=== PATIENT | female | born 1975 | race Caucasian/White ===

== ENCOUNTER 2016-06-13 21:12 | Emergency (ER) | payer OTHER ==
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
[~2016-06-13 21:12] MED LIST: MOTION SICKNESS25 M4 PO; NO MEDICATIONS; ZOFRAN ODT4 MG PO
== END 2016-06-13 22:29 | disposition home or self-care (01) ==
LOC: SED 21:12
DX: S13.4XXA Sprain of ligaments of cervical spine, initial encounter (principal); S23.3XXA Sprain of ligaments of thoracic spine, initial encounter; S40.011A Contusion of right shoulder, initial encounter; V43.62XA Car passenger injured in collision with other type car in traffic accident, initial encounter
CPT/HCPCS: 71020; 73030; 99284